=== PATIENT | female | born 1970 | race Caucasian/White ===

== ENCOUNTER 2016-11-27 11:29 | Emergency (ER) | payer MEDICAID ==
[2016-11-27 11:38] VITALS: BMI 28.3
[2016-11-27 11:39] VITALS: BP 117/66; PULSE 73; RESP 18; TEMP 98.4; O2SAT 99
--- NOTE | 2016-11-27 13:00 | ED PDOC ---
HPI: Eye Injury/Pain Time Seen by Provider: 11/27/16 12:11 Chief Complaint (Nursing): Eye Problem Chief Complaint (Provider): Bilateral Eye Pain History Per: Patient History/Exam Limitations: no limitations Onset/Duration Of Symptoms: Days (x4) Current Symptoms Are (Timing): Still Present Quality: "Pain" Wears Contact Lens?: No Additional Complaint(s): Elinor Geiger is a 46 year old female that presents to the ED with a chief complaint of bilateral eye pain that she has been experiencing for the past four days. Patient reports blurry vision and states that her eye pain has been worsening since its onset. She states that she does not wear contact lenses or glasses. Patient woke up the other day and noticed yellow discharge from both eyes matted to eyelashes. She has been using antihistamine eye drops but they have not helped. No fever or chills. No FB sensation to eyes. PMD: Dr. Crenshaw Past Medical History Reviewed: Historical Data, Nursing Documentation, Vital Signs Vital Signs: Last Vital Signs Temp 98.4 F 11/27/16 11:38 Pulse 73 11/27/16 11:38 Resp 18 11/27/16 11:38 BP 117/66 11/27/16 11:38 Pulse Ox 99 11/27/16 11:38 - Medical History PMH: Depression, Hypercholesterolemia - Surgical History Other surgeries: bladder lift - Family History Family History: States: Diabetes, Hypertension - Living Arrangements Living Arrangements: With Family - Social History Current smoker - smoking cessation education provided: No Alcohol: None Drugs: Denies - Home Medications Home Medications: Ambulatory Orders Medication Instructions Recorded Acetaminophen/Butalbital/Caf 1 tab PO Q6H PRN #22 tab 05/19/14 [Fioricet 325 mg-50 mg-40 mg] Tobramycin [Tobrex] 5 ml TOP QID #1 bottle 11/27/16 - Allergies Allergies/Adverse Reactions: Allergies Allergy/AdvReac Type Severity Reaction Status Date / Time No Known Allergies Allergy Unverified 05/19/14 15:57 Review of Systems ROS Statement: Except As Marked, All Systems Reviewed And Found Negative Eyes: Positive for: Pain (bilaterally), Vision Change (blurry vision), Redness ( and discharge both eyes) Gastrointestinal: Negative for: Nausea, Vomiting Neurological: Negative for: Headache, Dizziness Physical Exam - Reviewed Nursing Documentation Reviewed: Yes Vital Signs Reviewed: Yes - Physical Exam Appears: Positive for: Non-toxic, No Acute Distress Head Exam: Positive for: ATRAUMATIC, NORMOCEPHALIC Skin: Positive for: Normal Color, Warm Eye Exam: Positive for: Conjunctival injection (bilaterally, scant yellow discharge noted to both eyes, worse on right vs left, no gross FB bilaterally) ENT: Positive for: Normal ENT Inspection Cardiovascular/Chest: Positive for: Regular Rate, Rhythm Respiratory: Positive for: Normal Breath Sounds. Negative for: Respiratory Distress Gastrointestinal/Abdominal: Positive for: Normal Exam, Soft. Negative for: Tenderness Neurologic/Psych: Positive for: Alert, Oriented - ECG O2 Sat by Pulse Oximetry: 99 (RA) Pulse Ox Interpretation: Normal Medical Decision Making Medical Decision Making: Impression: bilateral conjunctivitis Prescription for Tobrex eyedrops. She was referred to hot cell technician remediation project engineer and was advised to follow-up in 2-3 days. Scribe Attestation: Documented by Farhana Leung, acting as a scribe for Amira Desai PA-C. Provider Scribe Attestation: All medical record entries made by the Scribe were at my direction and personally dictated by me. I have reviewed the chart and agree that the record accurately reflects my personal performance of the history, physical exam, medical decision making, and the department course for this patient. I have also personally directed, reviewed, and agree with the discharge instructions and disposition. Disposition - Clinical Impression Clinical Impression: Conjunctivitis - Disposition Referrals: Jose Ramon Ruiz MD [Staff Provider] - Disposition: Routine/Home Disposition Time: 13:09 Condition: STABLE Additional Instructions: Apply prescription drops as directed. Follow up with health informatics specialist for any persistent symptoms. Prescriptions: Tobramycin [Tobrex] 5 ml TOP QID #1 bottle Instructions: Conjunctivitis (ED) - PA / HOT CELL TECHNICIAN / Resident Statement /DO has reviewed & agrees with the documentation as recorded.
== END 2016-11-27 13:10 | disposition home or self-care (01) ==
LOC: H.ER 11:29
DX: H10.9 Unspecified conjunctivitis (principal); E78.00 Pure hypercholesterolemia, unspecified; F32.9 Major depressive disorder, single episode, unspecified

== ENCOUNTER 2017-09-23 10:34 | Inpatient (IN) | payer MEDICAID ==
[2017-09-23 10:35] VITALS: BMI 28.3
--- NOTE | 2017-09-23 11:02 | ED PDOC ---
HPI: Psych/Substance Abuse Time Seen by Provider: 09/23/17 10:51 Chief Complaint (Provider): Depression History Per: Patient, Family (sister) History/Exam Limitations: no limitations Onset/Duration Of Symptoms: Days (x1 year) Current Symptoms Are (Timing): Still Present Suicide/Self Injury Attempted (Context): None Associated Symptoms: Depression, Suicidal Thoughts. denies: Suicidal Plan Involuntary Hold By: None Additional Complaint(s): Elinor Geiger is a 47 year old female, with a past medical history of depression , who presents to the emergency department accompanied by sister complaining of feeling depressed onset for x1 year. Patient also reports having suicidal thoughts last week. Patient states she has had difficulty sleeping, she went to her PMD who prescribed her sleeping pills but with no relief. Patient reports receiving psychiatric treatment in the past. She denies any current suicidal or homicidal ideation. No further medical complaints. PMD: Dr. Kayla Crenshaw Past Medical History Reviewed: Historical Data, Nursing Documentation, Vital Signs Vital Signs: Last Vital Signs Temp 98 F 09/23/17 10:40 Pulse 86 09/23/17 10:40 Resp 20 09/23/17 10:40 BP 124/78 09/23/17 10:40 Pulse Ox 99 09/23/17 10:40 - Medical History PMH: Depression, Hypercholesterolemia - Surgical History Surgical History: No Surg Hx - Family History Family History: States: Diabetes, Hypertension - Social History Current smoker - smoking cessation education provided: No Alcohol: None Drugs: Denies - Home Medications Home Medications: Ambulatory Orders Medication Instructions Recorded Bupropion HCl [Zyban] 150 mg PO DAILY 09/23/17 Temazepam [Restoril] 15 mg PO HS 09/23/17 - Allergies Allergies/Adverse Reactions: Allergies Allergy/AdvReac Type Severity Reaction Status Date / Time No Known Allergies Allergy Unverified 05/19/14 15:57 Review of Systems ROS Statement: Except As Marked, All Systems Reviewed And Found Negative Psych: Positive for: Depression. Negative for: Suicidal ideation (current. No homicidal ideation.) Physical Exam - Reviewed Nursing Documentation Reviewed: Yes Vital Signs Reviewed: Yes - Physical Exam Appears: Positive for: Non-toxic, No Acute Distress. Negative for: Well ( tearful) Head Exam: Positive for: ATRAUMATIC, NORMAL INSPECTION, NORMOCEPHALIC Skin: Positive for: Normal Color, Warm, Dry Eye Exam: Positive for: Normal appearance Neck: Positive for: Painless ROM Cardiovascular/Chest: Positive for: Regular Rate, Rhythm. Negative for: Murmur Respiratory: Positive for: Normal Breath Sounds (clear to auscultation b/l). Negative for: Respiratory Distress Extremity: Positive for: Normal ROM. Negative for: Tenderness, Deformity, Swelling Neurologic/Psych: Positive for: Alert, Oriented (x3). Negative for: Motor/ Sensory Deficits - Laboratory Results Result Diagrams: 09/23/17 11:30 09/23/17 11:30 - ECG Interpretation Of ECG: NSR @ 73, no ST-T changes. O2 Sat by Pulse Oximetry: 99 (RA) Pulse Ox Interpretation: Normal - Radiology X-Ray: Interpreted by Me X-Ray Interpretation: No Acute Disease Medical Decision Making Medical Decision Making: Initial Impression: depression Initial Plan: --Reevaluation MEDICAL CLEARANCE: Pt medically cleared for psychiatric admission. Scribe Attestation: Documented by Stevenson Andrade, acting as a scribe for Sabrina Reynoso MD Provider Scribe Attestation: All medical record entries made by the Scribe were at my direction and personally dictated by me. I have reviewed the chart and agree that the record accurately reflects my personal performance of the history, physical exam, medical decision making, and the department course for this patient. I have also personally directed, reviewed, and agree with the discharge instructions and disposition. Disposition - Clinical Impression Clinical Impression: Depression - Patient ED Disposition Is Patient to be Admitted: Yes - Disposition Disposition Time: 12:37 Condition: STABLE - Pt Status Changed To: Hospital Disposition Of: Inpatient - Admit Certification Admit to Inpatient:: After my assessment, the patient will require hospitalization for at least two midnights. This is because of the severity of symptoms shown, intensity of services needed, and/or the medical risk in this patient being treated as an outpatient. - POA Present On Arrival: None
[2017-09-23 12:17] LABS: SQUAMOUS EPITHIAL 4 /hpf (0-5); URINE BACTERIA RARE (<OCC); URINE BILIRUBIN NEGATIVE (NEGATIVE); URINE BLOOD SMALL (NEGATIVE); URINE CLARITY CLOUDY (Clear); URINE COLOR YELLOW (YELLOW); URINE GLUCOSE (UA) NEG (Normal); URINE HYALINE CAST 0-2 /hpf (0-2); URINE LEUKOCYTE ESTERASE NEG Leu/uL (Negative); URINE PROTEIN 30 mg/dL (NEGATIVE); URINE UROBILINOGEN 0.2-1.0 mg/dL (0.2-1.0)
[2017-09-23 12:20] LABS: BASO % 0.3 % (0.0-2.0); EOS % 0.8 % (0.0-4.0); HEMOGLOBIN 15.1 g/dL (12.0-16.0); LYMPH # 1.7 K/uL (1.0-4.3); LYMPH % 31.3 % (20.0-40.0); MEAN CORPUSCULAR HEMOGLOBIN 30.8 pg (27.0-31.0); MEAN CORPUSCULAR HGB CONC 33.5 g/dL (33.0-37.0); MEAN PLATELET VOLUME 9.2 fl (7.2-11.7); MONO # 0.3 K/uL (0.0-0.8); MONO % 5.6 % (0.0-10.0); NEUT # 3.5 K/uL (1.8-7.0); NRBC % 0.1 % (0.0-0.0); RBC 4.91 Mil/uL (3.80-5.20); RED CELL DISTRIBUTION WIDTH 12.7 % (11.5-14.5); WHITE BLOOD COUNT 5.6 K/uL (4.8-10.8)
[2017-09-23 12:22] LABS: ALB/GLOB RATIO 1.4 (1.0-2.1); ALBUMIN 4.7 g/dL (3.5-5.0); ALT/SGPT 35 U/L (9-52); AST/SGOT 19 U/L (14-36); BLOOD UREA NITROGEN 10 mg/dl (7-17); CALCIUM 10.1 mg/dL (8.4-10.2); GFR AFRICAN-AMERICAN > 60; GFR NON-AFRICAN AMERICAN > 60
[2017-09-23 12:23] LABS: ACETAMINOPHEN < 10.0 ug/ml (10.0-30.0); SALICYLATE < 1.0 mg/dl
[2017-09-23 12:33] LABS: BENZODIAZEPINES, UR NEGATIVE (NEGATIVE)
[2017-09-23 12:34] LABS: BARBITURATES, UR NEGATIVE (NEGATIVE); OPIATES, UR NEGATIVE (NEGATIVE); PHENCYCLIDINE, UR NEGATIVE (NEGATIVE)
--- NOTE | 2017-09-23 13:06 | RAD ---
HISTORY: Medical clearance COMPARISON: No prior. TECHNIQUE: Chest PA and lateral FINDINGS: LUNGS: No active pulmonary disease. PLEURA: No significant pleural effusion identified. No pneumothorax apparent. CARDIOVASCULAR: Normal. OSSEOUS STRUCTURES: No significant abnormalities. VISUALIZED UPPER ABDOMEN: Normal. OTHER FINDINGS: None. IMPRESSION: No active disease.
[2017-09-23 13:29] VITALS: O2SAT 98
[2017-09-23] MEDS ORDERED: Magnesium Hydroxide Susp 30 ml UD PO PRN (15:22)
[2017-09-23] MEDS ORDERED: DiphenhydrAMINE 50 mg/ml Inj IM PRN (15:22)
[2017-09-23] MEDS ORDERED: Alum-Mag Hydrox-Simethicone Susp (30 mL) PO PRN (15:22)
--- NOTE | 2017-09-23 15:50 | PCM.PSYCH ---
Initial Psychiatric Evaluation - Initial Psychiatric Evaluation Type of Admission: Voluntary Legal Status: Capacity Chief Complaint (in patient's own words): I am so down and depressed I wish I am not alive Patient's Reaction to Hospitalization: pt requested help History of Present Illness and Precipitating Events: pt with previous diagnosis of post depression, diagnosed 20 years ago after giving to her second son, pt reportedly has not been in psychiatric treatment for the past 5years and discontinued going to her therapist a year ago, pt stated that for the past year she has been feeling increasingly depressed and also suffering from insomnia with about 2 hours of slepp every night, 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 on day of evaluation pt started having suicidal ideations with plan to cut herself, she reported that to hersister who advised her to come to ER pt denied manic symptoms, denied perceptual disturbances, presenting with paranoid ideations , no reported substance use Current Medications: Active Medications Generic Name Dose Route Start Last Admin Trade Name Freq PRN Reason Stop Dose Admin Acetaminophen 650 mg 09/23/17 15:22 Tylenol 325mg Tab PO Q4 PRN Pain, moderate (4-7) Al Hydrox/Mg Hydrox/Simethicone 30 ml 09/23/17 15:22 Maalox Plus 30 Ml PO Q4 PRN Dyspepsia Aripiprazole 2 mg 09/24/17 09:00 Abilify PO DAILY ISA Diphenhydramine HCl 50 mg 09/23/17 15:22 Benadryl IM Q6 PRN Extrapyramidal S/S Unable PO Diphenhydramine HCl 50 mg 09/23/17 15:22 Benadryl PO Q6 PRN Extrapyramidal Symptoms Haloperidol 5 mg 09/23/17 15:22 Haldol PO Q4 PRN Agitation Haloperidol Lactate 5 mg 09/23/17 15:22 Haldol IM Q4 PRN Agitation, Unable to Take PO Lorazepam 2 mg 09/23/17 15:22 Ativan IM Q4 PRN Anxiety/Agitation,Unable PO Lorazepam 2 mg 09/23/17 15:22 Ativan PO Q4 PRN Anxiety/Agitation Magnesium Hydroxide 30 ml 09/23/17 15:22 Milk Of Magnesia PO HS PRN Constipation Mirtazapine 15 mg 09/23/17 22:00 Remeron PO HS ISA Trazodone HCl 50 mg 09/23/17 15:26 Desyrel PO HS PRN Insomnia Past Psychiatric History - Past Psychiatric History Explanation of prior treatment: one hospitalization 20 years ago for post depression with suicidal ideations History of ETOH/Drug Use: denied Pertinent Medical Hx (Current Medical&Sleep Prob, Allergies): Allergies Allergy/AdvReac Type Severity Reaction Status Date / Time No Known Allergies Allergy Unverified 05/19/14 15:57 Bupropion HCl [Zyban] 150 mg PO DAILY 09/23/17 Temazepam [Restoril] 15 mg PO HS 09/23/17 Mental Status Examination - Personal Presentation Personal Presentation: Looks older than stated age - Affect Affect: Constricted, Depressed - Motor Activity Motor Activity: Psychomotor Retardation - Reliability in Providing Information Reliability in Providing Information: Poor, due to altered mood - Speech Speech: Relevant - Mood Mood: Depressed, Anxious - Formal Thought Process Formal Thought Process: Circumstantial - Hallucinations/Delusions Additional comments: denied perceptual disturbances, non elicited - Obsessions/Compulsions Obsessions: No Compulsions: No - Cognitive Functions Orientation: Person, Place, Situation Sensorium: Alert Attention/Concentration: Attentive Judgement: Imparied, as evidence by: Poor judgement - Risk Risk: Suicidal, Diminished functioning - Strength & Assets Inventory Strength & Assets Inventory: Employment history - Limitations Additional comments: poor social support DSM 5 DX - DSM 5 DSM 5 Diagnosis: major depression recurrent severe - Recommended/Plan of Treatment Treatment Recommendations and Plan of Treatment: start remeron 15mg qhs for ddepression and insomnia, trazodone 50mg qhs prn for insomnia augmentation with abilify 2mg with plan to uptitrate tp 5mg CBT , group and supportive therapy
[2017-09-23 16:28] LABS: HDL CHOLESTEROL 73 MG/DL (30-70)
[2017-09-23 16:39] LABS: LDL CHOLESTEROL 114 mg/dL (0-129)
--- NOTE | 2017-09-23 17:46 | PCM.BM ---
<Ashlie Morris - Last Filed: 09/23/17 17:43> Treatment Plan Problems - Problems identified on initial assessmt Depression Date Initiated: 09/23/17 Time Initiated: 17:44 Assessment reference: NA Status: Active Treatment assets and liabiliti Patient Assests: adapts well, cooperative, resourceful, self-reliant, ADL independent Patient Liabilities: financial problems (pt is having difficulty sleeping.), relationship conflicts - Milieu Protocol Maintain good personal hygiene: daily Encourage regular showers, daily Remind patient to perform daily oral care, daily Assist patient to perform ADL's Conduct patient checks and document Observation sheet: Q15 minutes Maintain personal safety: every shift Educate patient to report safety concerns to staff, every shift Monitor environment for contraband/sharps Medication safety: Monitor for expected outcome, potential side effects: every shift, Assess barriers to learning: every shift, Assess readiness for medication education: every shift Milieu Narrative: start remeron 15mg qhs for ddepression and insomnia, trazodone 50mg qhs prn for insomnia augmentation with abilify 2mg with plan to uptitrate tp 5mg CBT , group and supportive therapy Discharge/Continuing Care - Treatment Team Participation Patient/Family/SO Statement: start remeron 15mg qhs for ddepression and insomnia, trazodone 50mg qhs prn for insomnia augmentation with abilify 2mg with plan to uptitrate tp 5mg CBT , group and supportive therapy <Uri Sadler J - Last Filed: 09/24/17 16:08> Family Contact Family contact: Patient declines to allow family contact at present Family contact name: Pt denied. - Goals for Treatment Patient goals for treatment: Pt would like to gain motivation anf energy, so she has the ability to make needed changes to her life. Discharge/Continuing Care - Education Needs Education Needs: Patient Medication, Patient Diagnosis/Disease Process, Patient Coping Skills, Patient Community resources, Patient Aftercare Safety Plan - Discharge Discharge Criteria: Tolerates medication w/o severe side effects, Free of Suicidal thoughts, Normal sleep pattern, Reduction of target symptoms Discharge to:: Home, With Family - Treatment Team Participation Discussed with Family/SO: No Was Patient/Family/SO present at Treatment Team Meeting: Yes <Deric Light - Last Filed: 09/27/17 14:00> - Diagnosis (1) Depression Status: Acute Interventions: psychotherapy, pharmacotherapy 09/27/17 14:00
--- NOTE | 2017-09-23 18:00 | CP.PCM.CON ---
History of Present Illness - History of Present Illness History of Present Illness: 47 y/o female patient with history of depression 19 years ago brought to ER for crisis eval by sister for feeling depressed and insomnia. As per patient she has been suffering of worsening depression for more than 1 year now . She was started on wellbutrin and restoril by her PMD with minimal improvement . She is complaining of worsening depression , unable to sleep more than 2 hours a night, feeling irritable . Denies any hallucinations, suicidal attempt or ideation. [id number] any chest pain , SOB , palpitations, PND , orthopnea, urinary symptoms or changes in bowel movements. Denies any weight loss. Allergies ; NKDA PMH ; depression Medications ; Multivitamins Surgery ; uterine prolapse surgery Family history ; Mother has HTN father DM , sisters and brothers have DM and HTN Social history ; lives in [place] with , has 2 boys 21 and 19 years old ,both in college , that do not live at home, parents are alive quit working because could not function, denies smoking , ETOh or drug abuse ROS ; 10 point review of system negative except above PMD ; Dr. Kayla Crenshaw Review of Systems - Review of Systems All systems: reviewed and no additional remarkable complaints except Past Patient History - Infectious Disease Hx of Infectious Diseases: None - Tetanus Immunizations Tetanus Immunization: Unknown - Past Medical History & Family History Past Medical History?: No Past Family History: Reviewed and not pertinent - Past Social History Smoking Status: Never Smoked Chewing Tobacco Use: No Cigar Use: No Alcohol: None Drugs: Denies Home Situation {Lives}: With Family Domestic Violence: Negative - CARDIAC Hx Cardiac Disorders: No - PULMONARY Hx Respiratory Disorders: No Hx Tuberculosis: No - NEUROLOGICAL HX Cerebrovascular Accident: No Hx Seizures: No - HEENT Hx HEENT Problems: No - RENAL Hx Chronic Kidney Disease: No - ENDOCRINE/METABOLIC Hx Endocrine Disorders: No - HEMATOLOGICAL/ONCOLOGICAL Hx Blood Disorders: No Hx Cancer: No Hx Human Immunodeficiency Virus (HIV): No - INTEGUMENTARY Hx Dermatological Problems: No - MUSCULOSKELETAL/RHEUMATOLOGICAL Hx Musculoskeletal Disorders: No - GASTROINTESTINAL Hx Gastrointestinal Disorders: No - GENITOURINARY/GYNECOLOGICAL Hx Sexually Transmitted Disorders: No - PSYCHIATRIC Hx Depression: Yes (Post- depression 19yrs ago) Hx Substance Use: No - SURGICAL HISTORY Other/Comment: Bladder lift - ANESTHESIA Hx Anesthesia: No Meds Allergies/Adverse Reactions: Allergies Allergy/AdvReac Type Severity Reaction Status Date / Time No Known Allergies Allergy Unverified 05/19/14 15:57 - Medications Medications: Current Medications Acetaminophen (Tylenol 325mg Tab) 650 mg PO Q4 PRN PRN Reason: Pain, moderate (4-7) Al Hydrox/Mg Hydrox/Simethicone (Maalox Plus 30 Ml) 30 ml PO Q4 PRN PRN Reason: Dyspepsia Aripiprazole (Abilify) 2 mg PO DAILY ISA Diphenhydramine HCl (Benadryl) 50 mg IM Q6 PRN PRN Reason: Extrapyramidal S/S Unable PO Diphenhydramine HCl (Benadryl) 50 mg PO Q6 PRN PRN Reason: Extrapyramidal Symptoms Haloperidol (Haldol) 5 mg PO Q4 PRN PRN Reason: Agitation Haloperidol Lactate (Haldol) 5 mg IM Q4 PRN PRN Reason: Agitation, Unable to Take PO Lorazepam (Ativan) 2 mg IM Q4 PRN PRN Reason: Anxiety/Agitation,Unable PO Lorazepam (Ativan) 2 mg PO Q4 PRN PRN Reason: Anxiety/Agitation Magnesium Hydroxide (Milk Of Magnesia) 30 ml PO HS PRN PRN Reason: Constipation Mirtazapine (Remeron) 15 mg PO HS ISA Trazodone HCl (Desyrel) 50 mg PO HS PRN PRN Reason: Insomnia Physical Exam - Constitutional Appears: Non-toxic, No Acute Distress - Head Exam Head Exam: ATRAUMATIC, NORMAL INSPECTION, NORMOCEPHALIC - Eye Exam Eye Exam: EOMI, Normal appearance, PERRL Pupil Exam: NORMAL ACCOMODATION - ENT Exam ENT Exam: Mucous Membranes Moist, Normal Exam - Neck Exam Neck exam: Positive for: Full Rom, Normal Inspection - Respiratory Exam Respiratory Exam: Clear to Auscultation Bilateral, NORMAL BREATHING PATTERN. absent: Rales, Rhonchi, Wheezes - Cardiovascular Exam Cardiovascular Exam: REGULAR RHYTHM, RRR, +S1, +S2. absent: JVD - GI/Abdominal Exam GI & Abdominal Exam: Normal Bowel Sounds, Soft. absent: Distended, Guarding, Rebound, Tenderness - Rectal Exam Rectal Exam: Deferred - Extremities Exam Extremities exam: Positive for: normal capillary refill, normal inspection, pedal pulses present. Negative for: calf tenderness, pedal edema - Back Exam Back exam: NORMAL INSPECTION - Neurological Exam Neurological exam: Alert, CN II-XII Intact, Oriented x3, Reflexes Normal - Psychiatric Exam Psychiatric exam: Flat Affect Additional comments: tearful - Skin Skin Exam: Dry, Intact, Normal Color, Warm Results - Vital Signs Recent Vital Signs: Last Vital Signs Temp 97.2 F L 09/23/17 16:35 Pulse 75 09/23/17 16:35 Resp 18 09/23/17 16:35 BP 126/77 09/23/17 16:35 Pulse Ox 98 09/23/17 13:27 - Labs Result Diagrams: 09/23/17 11:30 09/23/17 11:30 Labs: Laboratory Results - last 24 hr 09/23/17 09/23/17 09/23/17 11:30 11:30 11:30 WBC 5.6 RBC 4.91 Hgb 15.1 Hct 45.2 MCV 92.0 MCH 30.8 MCHC 33.5 RDW 12.7 Plt Count 198 MPV 9.2 Neut % (Auto) 62.0 Lymph % (Auto) 31.3 [place] % (Auto) 5.6 Eos % (Auto) 0.8 Baso % (Auto) 0.3 Neut # (Auto) 3.5 Lymph # (Auto) 1.7 [place] # (Auto) 0.3 Eos # (Auto) 0.0 Baso # (Auto) 0.0 Sodium 148 Potassium 4.0 Chloride 106 Carbon Dioxide 23 Anion Gap 23 H BUN 10 Creatinine 0.7 Est GFR ( Amer) > 60 Est GFR (Non-Af Amer) > 60 Random Glucose 107 H Calcium 10.1 Total Bilirubin 0.5 AST 19 ALT 35 Alkaline Phosphatase 99 Total Protein 8.2 Albumin 4.7 Globulin 3.5 Albumin/Globulin Ratio 1.4 Triglycerides Cholesterol LDL Cholesterol Direct HDL Cholesterol Urine Color Urine Clarity Urine pH Ur Specific [place] Urine Protein Urine Glucose (UA) Urine Ketones Urine Blood Urine Nitrate Urine Bilirubin Urine Urobilinogen Ur Leukocyte Esterase Urine RBC (Auto) Urine Microscopic WBC Ur Squamous Epith Cells Urine Bacteria Hyaline Casts Salicylates < 1.0 Urine Opiates Screen Urine Methadone Screen Acetaminophen < 10.0 L Ur Barbiturates Screen Ur Phencyclidine Scrn Ur Amphetamines Screen U Benzodiazepines Scrn U Oth Cocaine Metabols U Cannabinoids Screen Alcohol, Quantitative < 10 09/23/17 09/23/17 09/23/17 11:30 11:30 15:32 WBC RBC Hgb Hct MCV MCH MCHC RDW Plt Count MPV Neut % (Auto) Lymph % (Auto) [place] % (Auto) Eos % (Auto) Baso % (Auto) Neut # (Auto) Lymph # (Auto) [place] # (Auto) Eos # (Auto) Baso # (Auto) Sodium Potassium Chloride Carbon Dioxide Anion Gap BUN Creatinine Est GFR ( Amer) Est GFR (Non-Af Amer) Random Glucose Calcium Total Bilirubin AST ALT Alkaline Phosphatase Total Protein Albumin Globulin Albumin/Globulin Ratio Triglycerides 150 H Cholesterol 224 H LDL Cholesterol Direct 114 HDL Cholesterol 73 H Urine Color Yellow Urine Clarity Cloudy Urine pH 6.0 Ur Specific [place] 1.021 Urine Protein 30 Urine Glucose (UA) Neg Urine Ketones Negative Urine Blood Small Urine Nitrate Negative Urine Bilirubin Negative Urine Urobilinogen 0.2-1.0 Ur Leukocyte Esterase Neg Urine RBC (Auto) 4 H Urine Microscopic WBC 2 Ur Squamous Epith Cells 4 Urine Bacteria Rare Hyaline Casts 0-2 Salicylates Urine Opiates Screen Negative Urine Methadone Screen Negative Acetaminophen Ur Barbiturates Screen Negative Ur Phencyclidine Scrn Negative Ur Amphetamines Screen Negative U Benzodiazepines Scrn Negative U Oth Cocaine Metabols Negative U Cannabinoids Screen Negative Alcohol, Quantitative Assessment & Plan (1) Depression Status: Acute Comment: Management as per psych. Check TSH. medically stable
[2017-09-24 06:51] LABS: BASO % 0.3 % (0.0-2.0); EOS # 0.1 K/uL (0.0-0.7); EOS % 2.3 % (0.0-4.0); HEMOGLOBIN 14.4 g/dL (12.0-16.0); LYMPH # 2.7 K/uL (1.0-4.3); LYMPH % 42.1 % (20.0-40.0); MEAN CELL VOLUME 91.9 fl (81.0-99.0); MEAN CORPUSCULAR HEMOGLOBIN 30.8 pg (27.0-31.0); MEAN CORPUSCULAR HGB CONC 33.6 g/dL (33.0-37.0); MEAN PLATELET VOLUME 9.2 fl (7.2-11.7); MONO # 0.5 K/uL (0.0-0.8); MONO % 7.6 % (0.0-10.0); NEUT % 47.7 % (50.0-75.0); NRBC % 0.1 % (0.0-0.0); RBC 4.68 Mil/uL (3.80-5.20); RED CELL DISTRIBUTION WIDTH 12.8 % (11.5-14.5); WHITE BLOOD COUNT 6.4 K/uL (4.8-10.8)
[2017-09-24 07:09] LABS: T4 8.86 ug/dl (5.5-11.0)
[2017-09-24 07:10] LABS: ALB/GLOB RATIO 1.4 (1.0-2.1); ALBUMIN 4.1 g/dL (3.5-5.0); ALT/SGPT 30 U/L (9-52); AST/SGOT 21 U/L (14-36); BLOOD UREA NITROGEN 15 mg/dl (7-17); CALCIUM 9.7 mg/dL (8.4-10.2); GFR AFRICAN-AMERICAN > 60; GFR NON-AFRICAN AMERICAN > 60
--- NOTE | 2017-09-24 10:02 | CARD ---
APPROVED REPORT EKG Measurement Heart [id number] <Conclusion> Normal sinus rhythm Normal ECG
--- NOTE | 2017-09-24 12:53 | PCM.PYCHPN ---
Psychiatric Progress Note - Psychiatric Progress Note Patient seen today, length of contact: pt evaluated discussed with team chart reviewed Patient Chief Complaint: I only slept few hours, I feel lonely and empty Problems Identified/Issues Discussed: pt on evaluation with treatment team, tearfull , depressed mood and affect, reported feeling empty and lonely, relates that to not having her children around, loosing her job and the poor relation she has with her partner, pt continues to have passsive suicidal ideation, feeling her life is worthless without active plan or intent on the unit, reported improved number of hours of sleep about five hours, but continues to be restless sleep, discussed with pt coping skills and need to challenge the current negative thoughts, discussed current medications and the possible increase dose of abilify for augmentation encouraged pt to attend groups, denied any current perceptual disturbances, appears to be less paranoid Medical Problems: one hospitalization 20 years ago for post depression with suicidal ideations DSM 5 Symptoms Update: major depression recurrent severe Medication Change: Yes (increase abilify and trazodone) Medical Record Reviewed: Yes Mental Status Examination - Cognitive Function Orientation: Person, Place, Situation Memory: Intact Attention: WNL Concentration: WNL Association: [facility] Fund of Knowledge: [facility] Decription of patient's judgement and insights: partial insight and fair judgment - Mood Mood: Depressed, Anxious - Affect Affect: Constricted, Depressed - Speech Speech: Soft - Formal Thought Process Formal Thought Process: Circumstantial - Suicidal Ideation Suicidal Ideation: No - Homicidal Ideation Homicidal Ideation: No Goal/Treatment Plan - Goal/Treatment Plan Need for Continued Stay: Severe depression anxiety, Discharge may exacerbated symptoms Progress Toward Problem(s) and Goals/Treatment Plan: continue remeron 15mg qhs for depression and insomnia, increase trazodone to 100mg qhs for insomnia augmentation with abilify 5mg CBT , group and supportive therapy Estimated Date of D/C: 09/29/17
--- NOTE | 2017-09-25 15:50 | PCM.PYCHPN ---
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 DSM 5 Symptoms Update: somewhat improving mood ongoing issues with sleep (somewhat improved) Medication Change: Yes (increase trazodone) Medical Record Reviewed: No Consults ordered or reviewed: pt seen by hospitalist Mental Status Examination - Cognitive Function Orientation: Person, Place, Situation Memory: Intact Attention: WNL Concentration: WNL Association: WNL Fund of Knowledge: WNL - Mood Mood: Depressed, Anxious - Affect Affect: Constricted, Depressed - Speech Speech: Soft - Formal Thought Process Formal Thought Process: Circumstantial - Homicidal Ideation Homicidal Ideation: No Goal/Treatment Plan - Goal/Treatment Plan Need for Continued Stay: Severe depression anxiety, Discharge may exacerbated symptoms Progress Toward Problem(s) and Goals/Treatment Plan: inpt milieu adjust meds per status increase trazodone to 150mg po hs vital signs and clinical assessment per protocol and per status on going assessment Estimated Date of D/C: 09/29/17 - Smoking Cessation Smoking Cessation Initiated: No Reason for not providing: pt defers
--- NOTE | 2017-09-26 17:14 | PCM.PYCHPN ---
Psychiatric Progress Note - Psychiatric Progress Note Patient seen today, length of contact: pt evaluated discussed with team chart reviewed Patient Chief Complaint: was feeling depressed trouble sleeping family stressors, sleeping only mildly improved with trazodone being increased to 150mg po hs. reports in past was treated with remeron and clonoazepam-review with pt clonozepam not indicated for sleep. pt verbally agreeable to attempt trazodone 200mg po hs with on going remeron 15mg po hs. sleeping approx. 4-5 hours per night awakening unrested. 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 DSM 5 Symptoms Update: improving mood insomnia only minor improvement Medication Change: Yes (increase trazodone) Medical Record Reviewed: No Consults ordered or reviewed: pt seen by hospitalist Mental Status Examination - Cognitive Function Orientation: Person, Place, Situation Memory: Intact Attention: WNL Concentration: WNL Association: WNL Fund of Knowledge: WN Decription of patient's judgement and insights: impaired - Mood Mood: Depressed, Anxious Additional comments: improving - Affect Affect: Constricted, Depressed - Speech Speech: Soft - Formal Thought Process Formal Thought Process: Circumstantial - Suicidal Ideation Suicidal Ideation: No - Homicidal Ideation Homicidal Ideation: No Goal/Treatment Plan - Goal/Treatment Plan Need for Continued Stay: Severe depression anxiety, Discharge may exacerbated symptoms Progress Toward Problem(s) and Goals/Treatment Plan: inpt milieu adjust meds per status increase trazodone to 200mg po hs-get up slowly, possible constipation, dizziness possible increased s/i with dual antidepressants vital signs and clinical assessment per protocol and per status on going assessment discharge planning in progress Estimated Date of D/C: 09/29/17 - Smoking Cessation Smoking Cessation Initiated: No Reason for not providing: pt defers
--- NOTE | 2017-09-27 15:08 | PCM.PYCHPN ---
Psychiatric Progress Note - Psychiatric Progress Note Patient seen today, length of contact: pt evaluated discussed with team chart reviewed Patient Chief Complaint: I still could not sleep and I have no energy Problems Identified/Issues Discussed: pt on evaluation , reported continues to have insomnia, intermediate only able to sleep for two hours, discussed with pt will discontinue remeron and start seroquel 50mg qhs, pt also reported negative side effects of abilify with increased sedation and low energy , continues to be depressed and anhedonic discussed with pt will discontinue abilify and start wellbutrin 75mg daily pt attending groups, compliant with treatment denied any current suicidal or homicidal ideations, denied perceptual disturbances Medical Problems: one hospitalization 20 years ago for post depression with suicidal ideations DSM 5 Symptoms Update: major depression recurrent severe Medication Change: No (increase trazodone) Medical Record Reviewed: No Mental Status Examination - Cognitive Function Orientation: Person, Place, Situation Memory: Intact Attention: WNL Concentration: WNL Association: WNL Fund of Knowledge: WNL - Mood Mood: Depressed, Anxious - Affect Affect: Constricted, Depressed - Speech Speech: Soft - Formal Thought Process Formal Thought Process: Circumstantial - Suicidal Ideation Suicidal Ideation: No - Homicidal Ideation Homicidal Ideation: No Goal/Treatment Plan - Goal/Treatment Plan Need for Continued Stay: Severe depression anxiety, Discharge may exacerbated symptoms Progress Toward Problem(s) and Goals/Treatment Plan: discontinue remeron 15mg qhs , continue trazodone to 200mg qhs for insomnia , start seroquel 50mg qhs discontinue abilify 5mg, start wellbutrin 75mg with plan to uptitrate monitor pt for psychopharmacological effects and side effect profile CBT , group and supportive therapy Estimated Date of D/C: 09/29/17
--- NOTE | 2017-09-28 13:37 | PCM.PYCHPN ---
Psychiatric Progress Note - Psychiatric Progress Note Patient seen today, length of contact: pt evaluated discussed with team chart reviewed Patient Chief Complaint: I slept better last night Problems Identified/Issues Discussed: pt on evaluation , reported improved sleep about five hours last night, , resulting in better mood and better level of energy, continues to feel down when she thinks about the distant relation she currently now has with her partner, discussed with pt need for therapy and possible family therapy on discharge pt reported feeling better with wellbutrin, no reported side effects pt attending groups, compliant with treatment denied any current suicidal or homicidal ideations, denied perceptual disturbances Medical Problems: one hospitalization 20 years ago for post depression with suicidal ideations Medication Change: No Medical Record Reviewed: No Mental Status Examination - Cognitive Function Orientation: Person, Place, Situation Memory: Intact Attention: WNL Concentration: WNL Association: WNL Fund of Knowledge: WNL - Mood Mood: Depressed, Anxious - Affect Affect: Constricted, Depressed - Speech Speech: Soft - Formal Thought Process Formal Thought Process: Circumstantial - Suicidal Ideation Suicidal Ideation: No - Homicidal Ideation Homicidal Ideation: No Goal/Treatment Plan - Goal/Treatment Plan Need for Continued Stay: Severe depression anxiety, Discharge may exacerbated symptoms Progress Toward Problem(s) and Goals/Treatment Plan: continue trazodone to 200mg qhs for insomnia, seroquel 50mg qhs increase wellbutrin 100mg with plan to uptitrate monitor pt for psychopharmacological effects and side effect profile CBT , group and supportive therapy Estimated Date of D/C: 10/01/17
--- NOTE | 2017-09-29 16:11 | PCM.PYCHPN ---
Psychiatric Progress Note - Psychiatric Progress Note Patient seen today, length of contact: pt evaluated discussed with team chart reviewed Patient Chief Complaint: I slept better hoursbut only five Problems Identified/Issues Discussed: pt on evaluation , reported improved sleep but with late insomnia, reported better mood and better level of energy, continues to feel down when she thinks about the distant relation she currently now has with her partner, discussed with pt increasing wellbutrin to 100mg , no reported side effects pt attending groups, compliant with treatment denied any current suicidal or homicidal ideations, denied perceptual disturbances Medical Problems: one hospitalization 20 years ago for post depression with suicidal ideations DSM 5 Symptoms Update: major depression recurrent severe Medication Change: Yes (increase wellbutrin) Medical Record Reviewed: No Mental Status Examination - Cognitive Function Orientation: Person, Place, Situation Memory: Intact Attention: WNL Concentration: WNL Association: WNL Fund of Knowledge: WNL - Mood Mood: Depressed, Anxious - Affect Affect: Constricted, Depressed - Speech Speech: Appropriate, Soft - Formal Thought Process Formal Thought Process: Circumstantial - Suicidal Ideation Suicidal Ideation: No - Homicidal Ideation Homicidal Ideation: No Goal/Treatment Plan - Goal/Treatment Plan Need for Continued Stay: Severe depression anxiety, Discharge may exacerbated symptoms Progress Toward Problem(s) and Goals/Treatment Plan: decrease trazodone to 100mg qhs for insomnia, increase seroquel 100mg qhs increase wellbutrin 100mg monitor pt for psychopharmacological effects and side effect profile CBT , group and supportive therapy Estimated Date of D/C: 10/01/17
--- NOTE | 2017-09-30 12:25 | PCM.PYCHPN ---
Psychiatric Progress Note - Psychiatric Progress Note Patient seen today, length of contact: pt evaluated discussed with team chart reviewed Patient Chief Complaint: I am less depressed and I slept better Problems Identified/Issues Discussed: pt on evaluation , reported better mood feeling less depressed, brighter affect , pt reported feeling anxious , mainly about the conflict she has with her partner and the financial stressors she has , discussed with pt the possible coping startegies with current stressors pt agrees to attend outpatient therapy on discharge reported better sleep , no side effects of medications pt attending groups, compliant with treatment denied any current suicidal or homicidal ideations, denied perceptual disturbances Medical Problems: one hospitalization 20 years ago for post depression with suicidal ideations DSM 5 Symptoms Update: major depression recurrent severe Medication Change: Yes (increase wellbutrin) Medical Record Reviewed: No Mental Status Examination - Cognitive Function Orientation: Person, Place, Situation Memory: Intact Attention: WNL Concentration: WNL Association: WNL Fund of Knowledge: WNL - Mood Mood: Anxious - Affect Affect: Constricted, Depressed - Speech Speech: Appropriate, Soft - Formal Thought Process Formal Thought Process: Circumstantial - Suicidal Ideation Suicidal Ideation: No - Homicidal Ideation Homicidal Ideation: No Goal/Treatment Plan - Goal/Treatment Plan Need for Continued Stay: Severe depression anxiety, Discharge may exacerbated symptoms Progress Toward Problem(s) and Goals/Treatment Plan: decrease trazodone to 100mg qhs for insomnia, increase seroquel 100mg qhs increase wellbutrin 150mg sr monitor pt for psychopharmacological effects and side effect profile CBT , group and supportive therapy Estimated Date of D/C: 10/01/17
[2017-09-30 16:38] VITALS: PULSE 81; RESP 18
[2017-10-01] MEDS ORDERED: buPROPion SR 150 MG TABLET PO SCH (09:00)
[2017-10-01 09:08] VITALS: BP 125/67; TEMP 97.1
--- NOTE | 2017-10-01 13:26 | PCM.PYCHDC ---
Mental Status Examination - Mental Status Examination Orientation: Person, Place, Situation Memory: Intact Mood: Neutral Affect: Broad Speech: Appropriate Attention: WNL Concentration: WNL Association: WNL Fund of Knowledge: WNL Formal Thought Process: No Impairment Description of patient's judgement and insight: good insight and fair judgment Psychotic Thoughts and Behaviors: pt denied psychotic symptoms, non elicited Suicidal Ideation: No Current Homicidal Ideation?: No Discharge Summary - Discharge Note Reason for Hospitalization: pt requested help pt with previous diagnosis of post depression, diagnosed 20 years ago after giving to her second son, pt reportedly has not been in psychiatric treatment for the past 5years and discontinued going to her therapist a year ago, pt stated that for the past year she has been feeling increasingly depressed and also suffering from insomnia with about 2 hours of slepp every night, pt became unable to function and had to quit her job in the [employer] , pt since then was home reported not having any support from her partner, also she has been worried about her partner having affairs she was started by her PMD on wellbutrin and restoril but continues to suffer from depression and insomnia. on day of evaluation pt started having suicidal ideations with plan to cut herself, she reported that to hersister who advised her to come to ER pt denied manic symptoms, denied perceptual disturbances, presenting with paranoid ideations , no reported substance use Consultations:: List each consultation separately and include: 1. Reason for request. 2. Findings. 3. Follow-up Summary of Hospital Course include:: 1. Description of specific treatment plan utilized for patients during their course of treatmen. 2. Summarize the time- course for resolution of acute symptoms and/or regressed behaviors. 3. Describe issues identified and worked on during hospitalization. 4. Describe medication utilized. 5. Describe medical problems identified and treated. 6. Reassessment of suicide risk Summary of Hospital Course: pt on admission was started on remeron for depression and poor sleep, it was uptitrated to 15mg , pt however continues to report intermediate insomnia and depressed mood remeron was discontinued and pt was started on seroquel , it was increased to 100mg qhs, pt was [place] placed on wellbutrin ,uptitrated to 150mg daily pt gradually presented with better mood and brighter affect pt was provided with CBT, group and supportive therapy pt attended groups was compliant with treatment , no reported side effects of medications on discharge pt denied any suicidal or homicidal ideations denied perceptual disturbances follow up arranged by social security assessor at [facility] outpatient clinic - Diagnosis (1) Depression Status: Acute - Final Diagnosis (DSM 5) Condition upon Discharge: STABLE DSM 5: major depression recurrent severe without psychotic features Disposition: HOME/ ROUTINE Follow-up Treatment Plan: decrease trazodone to 100mg qhs for insomnia, increase seroquel 100mg qhs increase wellbutrin 150mg sr monitor pt for psychopharmacological effects and side effect profile CBT , group and supportive therapy Prescriptions/Medication Reconciliation: buPROPion SR [Wellbutrin SR 150 MG] 150 mg PO DAILY 30 Days #30 tab QUEtiapine [Seroquel] 100 mg PO HS 30 Days #30 tab traZODone [Desyrel] 100 mg PO HS 30 Days #30 tab - Antipsychotic Medications Pt discharged on 2 or more routine antipsychotic medications: No
== END 2017-10-01 13:13 | disposition home or self-care (01) | DRG 430 ==
LOC: H.ER 10:34 → H.ERHOLD 12:37 → H.PSYCH 13:33
PROVIDERS: ADMIT Psychiatry & Neurology Psychiatry; ATTEND Psychiatry & Neurology Psychiatry
PROC: GZHZZZZ Group Psychotherapy (ICD-10-PCS; principal; 2017-09-23)
PROC: GZ58ZZZ Individual Psychotherapy, Cognitive-Behavioral (ICD-10-PCS; 2017-09-23)
PROC: GZ56ZZZ Individual Psychotherapy, Supportive (ICD-10-PCS; 2017-09-23)
DX: F33.2 Major depressive disorder, recurrent severe without psychotic features (principal); R45.851 Suicidal ideations; G47.09 Other insomnia; E78.00 Pure hypercholesterolemia, unspecified

== ENCOUNTER 2018-01-11 11:35 | Emergency (ER) | payer MEDICAID ==
[2018-01-11 12:09] VITALS: BP 127/77; PULSE 77; TEMP 98.9; O2SAT 98; BMI 29.2
[2018-01-11 12:15] VITALS: RESP 18
--- NOTE | 2018-01-11 12:26 | ED PDOC ---
Upper Extremity Pain/Injury Time Seen by Provider: 01/11/18 12:09 Chief Complaint (Nursing): Upper Extremity Problem/Injury Chief Complaint (Provider): right shoulder pain History Per: Patient History/Exam Limitations: no limitations Onset/Duration Of Symptoms: Days (x yesterday) Current Symptoms Are (Timing): Still Present Additional Complaint(s): 47-year-old right hand dominant female presents to emergency department complaining of right shoulder pain since yesterday after playing basketball. Pt reports she did not feel pain initially yesterday after playing, but felt pain today. Pt denies taking any medication for pain. She rates current pain as 8/10. PMD: Kayla Crenshaw Past Medical History Reviewed: Historical Data, Nursing Documentation, Vital Signs Vital Signs: Last Vital Signs Temp 98.9 F 01/11/18 12:12 Pulse 77 01/11/18 12:12 Resp 18 01/11/18 12:12 BP 127/77 01/11/18 12:12 Pulse Ox 98 01/11/18 12:12 - Medical History PMH: Depression, Hypercholesterolemia - Surgical History Other surgeries: Bladder Lift Surgery - Family History Family History: States: Diabetes, Hypertension - Living Arrangements Living Arrangements: With Family - Social History Current smoker - smoking cessation education provided: No Alcohol: None Drugs: Denies - Home Medications Home Medications: Ambulatory Orders Medication Instructions Recorded QUEtiapine [Seroquel] 100 mg PO HS 30 Days #30 tab 10/01/17 buPROPion SR [Wellbutrin SR 150 MG] 150 mg PO DAILY 30 Days #30 tab 10/01/17 traZODone [Desyrel] 100 mg PO HS 30 Days #30 tab 10/01/17 Cyclobenzaprine [Cyclobenzaprine 10 mg PO TID PRN #20 tab 01/11/18 HCl] Naproxen [Naprosyn] 500 mg PO BID #20 tab 01/11/18 traMADol [Ultram] 50 mg PO QID PRN #20 tab 01/11/18 - Allergies Allergies/Adverse Reactions: Allergies Allergy/AdvReac Type Severity Reaction Status Date / Time No Known Allergies Allergy Unverified 05/19/14 15:57 Review of Systems ROS Statement: Except As Marked, All Systems Reviewed And Found Negative Musculoskeletal: Positive for: Shoulder Pain (right) Physical Exam - Reviewed Nursing Documentation Reviewed: Yes Vital Signs Reviewed: Yes - Physical Exam Appears: Positive for: Well, Non-toxic, No Acute Distress Skin: Positive for: Normal Color. 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 X-ray results were discussed with patient, all questions answered. Splint was applied to right arm. Prescriptions given for Naprosyn, Flexeril and tramadol. Patient was referred to orthopedist on-call for follow-up. Scribe Attestation: Documented by Bradley Kiran, acting as a scribe for Amira Desai PA-C. Provider Scribe Attestation: All medical record entries made by the Scribe were at my direction and personally dictated by me. I have reviewed the chart and agree that the record accurately reflects my personal performance of the history, physical exam, medical decision making, and the department course for this patient. I have also personally directed, reviewed, and agree with the discharge instructions and disposition. Procedures - Splinting Location: right arm Pre-Made Type: sling Pre-Proc Neuro Vasc Exam: normal Post-Proc Neuro Vasc Exam: normal Disposition - Clinical Impression Clinical Impression: Calcific tendinitis of right shoulder - Patient ED Disposition Is Patient to be Admitted: No Counseled Patient/Family Regarding: Studies Performed, Diagnosis, Need For Followup, Rx Given - Disposition Referrals: Kyle Addison III, MD [Staff Provider] - Kayla Crenshaw [Staff Provider] - Disposition: Routine/Home Disposition Time: 14:25 Condition: STABLE Additional Instructions: Ice, rest and elevate affected area. Take prescription meds as directed as needed for pain. Follow-up with primary doctor or orthopedist for any persistent symptoms. Prescriptions: Cyclobenzaprine [Cyclobenzaprine HCl] 10 mg PO TID PRN #20 tab PRN Reason: Muscle Spasm Naproxen [Naprosyn] 500 mg PO BID #20 tab traMADol [Ultram] 50 mg PO QID PRN #20 tab PRN Reason: Pain, Moderate (4-7) Instructions: Calcific Tendonitis of the Shoulder (DC) Forms: [employer] (Faroese)
--- NOTE | 2018-01-11 14:00 | RAD ---
Date of service: 01/11/2018 HISTORY: Trauma COMPARISON: No prior. FINDINGS: BONES: Normal. No fracture. JOINTS: mild degenerative osteoarthritis acromioclavicular joint. SOFT TISSUES: There are cluster of calcifications seen in the soft tissues adjacent to the greater tuberosity consistent with calcified tendinitis or bursitis. . OTHER FINDINGS: None. IMPRESSION: No evidence of acute displaced fracture or dislocation. . 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 Findings consistent with calcific tendinitis or bursitis
--- NOTE | 2018-01-11 14:36 | RAD ---
Date of service: 01/11/2018 PROCEDURE: Radiographs of the right elbow. HISTORY: trauma COMPARISON: No prior. FINDINGS: BONES: No acute fracture. JOINTS: Unremarkable. SOFT TISSUES: Normal. JOINT EFFUSION: None. OTHER FINDINGS: None. IMPRESSION: No demonstrated fracture or dislocation.
== END 2018-01-11 14:35 | disposition home or self-care (01) ==
LOC: H.ER 11:35
DX: M75.31 Calcific tendinitis of right shoulder (principal); Z86.59 Personal history of other mental and behavioral disorders; E78.00 Pure hypercholesterolemia, unspecified
CPT/HCPCS: 73030; 73080; 81025; 96372; 99284; J1885